=== PATIENT | male | born 1950 | race Caucasian/White ===

== ENCOUNTER 2018-12-20 09:10 | Observation (INO) ==
--- NOTE | 2018-12-20 09:47 | Diag Imaging Result Doc PS360 ---
EXAM: CHEST-2 VIEWS HISTORY: dizziness TECHNIQUE: Two views COMPARISON: 06/29/2018 FINDINGS: The lungs are well expanded. The heart is not enlarged. The there are sternal wires. Vessels are not distended. There are no infiltrates. No pleural effusions. IMPRESSION: No acute abnormality. Electronically signed by Anthony Ansari 12/20/2018 9:44 AM
[2018-12-20 10:06] LABS: BASO# 0.04 X1000 (0.0-0.2); BASO% 0.3 % (0.0-0.8); EOS# 0.06 X1000 (0.0-0.7); EOS% 0.4 % (0.0-10.0); HEMATOCRIT 49.3 % (42.0-52.0); HEMOGLOBIN 16.4 g/dL (14.0-18.0); IMM GRAN# 0.04 X1000 (0.0-0.04); IMM GRAN% 0.3 % (0.0-0.5); LYMPH# 1.35 X1000 (1.2-3.4); LYMPH% 9.4 % (20.5-51.1); MCH 30.4 PG (27-31); MCHC 33.3 g/dL (33-37); MCV 91.3 FL (81-99); MONO# 0.67 X1000 (0.11-0.59); MONO% 4.6 % (1.7-9.3); MPV 10.3 FL (7.4-10.4); NEUT# 12.25 X1000 (1.4-6.5); PLT 333 X1000 (130-400); RDW 12.3 % (11.5-14.5); WBC 14.41 X1000 (4.8-10.8)
[2018-12-20 10:09] LABS: INR 0.99; PROTIME 13.2 Seconds (11.0-16.0)
[2018-12-20 10:13] LABS: PTT 24.4 Seconds (22.3-41.8)
[2018-12-20 10:45] LABS: ALB/GLOB RATIO 1.5; ALBUMIN 4.5 g/dL (3.5-5.0); CREATININE 1.6 mg/dL (0.7-1.2); POTASSIUM 4.3 mmol/L (3.5-5.1); TOTAL BILIRUBIN 0.36 mg/dL (0.20-1.00); TOTAL PROTEIN 7.5 g/dL (6.3-8.3)
--- NOTE | 2018-12-20 10:57 | EKG Report ---
Test Performed on : 12/20/2018 10:16:30 AM Test Reason : dizziness Blood Pressure : / mmHG Vent. Rate : 063 BPM Atrial Rate : 063 BPM P-R Int : 230 ms QRS Dur : 104 ms QT Int : 410 ms P-R-T Axes : 017 -03 114 degrees QTc Int : 419 ms Sinus rhythm. with 1st degree AV block. Inferior infarct , age undetermined T wave abnormality, consider lateral ischemia Abnormal ECG When compared with ECG of 04-MAR-2018 13:17, Inferior infarct is now present Unconfirmed Result
[2018-12-20 11:34] LABS: BE -2.2 mmoll (-2.0-2.0); BLOOD TYPE VENOUS; HCO3-(ACT) 21.6 mmoll (22-27); PCO2(98.6) 49 mmHg (40-60); PO2(98.6) 26 mmHg (30-55); SAMPLE BLOOD; SAO2 48.6 % (40.0-85.0); pH(98.6) 7.31 (7.32-7.43)
[2018-12-20 11:43] LABS: URINE SOURCE CLEAN CATCH
[2018-12-20] MEDS ORDERED: NS 1,000 ML IV ONE (11:48)
[2018-12-20] MEDS ORDERED: HUMULIN R SUBQ ONE (11:48)
[2018-12-20] MEDS ORDERED: ROCEPHIN 1 GM in NS 50 ML IV ONE (11:52)
[2018-12-20 12:00] LABS: BILIRUBIN URINE NEGATIVE (NEGATIVE); BLOOD URINE NEGATIVE (NEGATIVE); COLOR YELLOW; GLUCOSE URINE >1000 mg/dL (NEGATIVE); KETONE URINE NEGATIVE (NEGATIVE); LEUKOCYTES URINE TRACE (NEGATIVE); NITRITE URINE NEGATIVE (NEGATIVE); PH URINE 5.5; PROTEIN URINE 30 mg/dL (NEGATIVE); SP GRAVITY URINE 1.033; TURBIDITY URINE CLEAR (CLEAR); UROBILINOGEN URINE NORMAL (NORMAL)
[2018-12-20 12:42] LABS: UR EPITHELIAL CELLS <10 /HPF (<10); URINE BACTERIA NEGATIVE /HPF; URINE RBC <10 /HPF (<10)
[2018-12-20 13:07] LABS: URINE YEAST PRESENT
--- NOTE | 2018-12-20 14:44 | Diag Imaging Result Doc PS360 ---
EXAM: CT ANGIOGRM PULMONARY ARTERIES 12/20/2018 HISTORY: elevated d-dimer TECHNIQUE: This exam was performed using automated exposure control, adjustment of mA or kV according to patient size, and/or use of iterative reconstruction technique. COMMENT: 3-D MIPS were performed. There are multiple filling defects present in both lower lobes and both upper lobes with a embolus bridging the interlobar pulmonary artery on the right. Between the lower lobe and the middle lobe vessels. There are no previous studies. There is extensive coronary calcification. There has been previous sternotomy. There is no evidence of acute pulmonary parenchymal disease. There are no abnormal fluid collections. There is no evidence of significant adenopathy. There is an exophytic lesion arising posteriorly from the mid right renal cortex with a CT density of over 45 Hounsfield units and this may represent a hyperdense cyst. The lesion measures 1.9 cm in diameter. There are no previous studies. The regional skeleton is intact. IMPRESSION: Extensive pulmonary emboli. The findings were discussed with Kulwant Allen MD at 12/20/2018 2:42 PM. Electronically signed by Nasim Calix 12/20/2018 2:42 PM
[2018-12-20] MEDS ORDERED: LOVENOX 1 MG/KG SUBQ ONE (15:00)
[2018-12-20] MEDS ORDERED: LOVENOX SUBQ ONE (15:30)
[2018-12-20] MEDS ORDERED: ZOFRAN IV PRN (15:41)
[2018-12-20] MEDS ORDERED: TYLENOL PO PRN (15:41)
[2018-12-20] MEDS ORDERED: HUMALOG SUBQ SCH (16:00)
[2018-12-20 16:25] LABS: HEMOGLOBIN A1C 9.1 % (4.8-6.0)
[2018-12-20] MEDS: NS 1,000 ML IV SCH (16:38)
--- NOTE | 2018-12-20 18:56 | HISTORY AND PHYSICAL ---
PRIMARY CARE PHYSICIAN: Dr. Rene Rashid. CHIEF COMPLAINT: Dizziness and diaphoresis 1 hour prior to arrival. HISTORY OF PRESENTING ILLNESS: This is a 68-year-old male who presents to [facility] with complaints of diaphoresis and dizziness that began 1 hour prior to arrival feeling like he was going to pass out. When he arrived he was noted to have a white blood cell count of 14.41. His D-dimer was 1.35. We did a pulmonary arteriogram that showed an impression of extensive pulmonary emboli present in both lower lobes and both upper lobes with an embolus bridging the interlobar pulmonary artery on the right. His blood sugar was noted to be 383. His creatinine was 1.6. His anion gap was 19. Urinalysis was negative. So, he will be admitted for further evaluation and treatment. PAST MEDICAL HISTORY: Diabetes type 2, hypertension and [place]. PAST SURGICAL HISTORY: CABG. FAMILY HISTORY: Reviewed and noncontributory. SOCIAL HISTORY: He currently lives alone. Denies any tobacco, alcohol or illicit drug use. Allergies: He has no known drug allergies. HOME MEDICATIONS: We will hold his metformin 1000 mg p.o. b.i.d., aspirin 325 mg p.o. daily, Tricor 145 mg p.o. daily, NovoLog FlexPen 10 units subcu t.i.d., Levemir 50 units subcutaneous b.i.d., Prinivil 20 mg p.o. daily, Lopressor 25 mg p.o. daily, omega-3 1000 mg p.o. daily, Ranexa 500 mg p.o. b.i.d., and Crestor 40 mg p.o. daily. LABORATORY DATA: Showed a white blood cell count of 14.41, hemoglobin 16.4, hematocrit 49.3, and platelets 333,000 PT and INR of 13.2 and 0.99 with a D-dimer of 1.35. A venous blood gas showed a pH of 7.31, pCO2 49, PO2 26, bicarb 21.6, lactate 4.50. Sodium 137, potassium 4.3, chloride 96, CO2 22, BUN of 22, creatinine 1.6, glucose 383, magnesium of 2. Cardiac enzymes were negative, proBNP of 226, free T4 of 1.18. Urinalysis was negative except for urine yeast- like cells present. Pulmonary arteriogram showed extensive pulmonary emboli present in both lower lobes and both upper lobes with an embolus bridging the interlobar pulmonary artery on the right. Chest x-ray showed no acute abnormality. EKG showed sinus rhythm with a first-degree AV block at 63. REVIEW OF SYSTEMS: He denied any fever, chills, blurred vision. He had dizziness, diaphoresis. Denied any chest pain, coughing, shortness of breath denied any abdominal pain, constipation, diarrhea, burning or hurting with urination. PHYSICAL EXAMINATION: On arrival he had a temperature of 97.3 degrees, pulse 72, respirations 18, blood pressure 121/78 saturating 96% on room air. GENERAL: This is a 68-year-old male who is lying in the bed and answers questions appropriately. HEENT: Normocephalic, atraumatic. Normal ENT inspection. Oropharynx and nares are clear. EYES: Pupils are equal, round, reactive to light and accommodation. Extraocular movements are intact. NECK: Normal inspection. Normal range of motion. LUNGS: Clear to auscultation bilaterally with equal lung expansion and chest wall movement. HEART: With regular rate and rhythm. No murmurs, rubs, or gallops. ABDOMEN: Soft, nontender, nondistended. Bowel sounds are present x4 quadrants. MUSCULOSKELETAL: He had 5/5 strength x4 extremities. NEUROLOGICAL: The cranial nerves 2-12 appear grossly intact. ASSESSMENT: 1. Bilateral upper and lower pulmonary emboli. 2. Elevated D-dimer secondary to #1. 3. Leukocytosis. 4. Acute kidney injury. 5. Diabetes type 2, uncontrolled with hyperglycemia. OUR PLAN: He will be admitted to the medical unit, placed on telemetry diabetic diet, pattern blood sugars with high sliding scale. Lovenox 1 mg/kg subcutaneously q.12, normal saline at 75 mL an hour. Continue home medications as previously identified. We will do a hypercoagulable workup. Urine culture is pending. We will check a hemoglobin A1c and blood cultures x2 are pending. Further orders after seen by attending. Dictated by FRANKIE Sosa for Devyn Hernandez MD cc: FRANKIE Sosa MD Agree with the above, the following is my own face to face assessment. lung exam surprisingly clear given extent of bilateral pulmonary emboli. giving therapeutic lovenox and will likely transition to eliquis in the morning if patient remains stable. told patient that especially with a previous history of another unprovoked clot, he is likely stuck with anticoagulation indefinitely. MTDD
[2018-12-20] MEDS: HUMALOG SUBQ SCH ×2 (19:31→20:46)
[2018-12-20] MEDS: RANEXA PO SCH (20:45)
[2018-12-20] MEDS: LEVEMIR SUBQ SCH (20:46)
[2018-12-21] MEDS: LOVENOX SUBQ SCH ×2 (04:09→18:51)
[2018-12-21] MEDS: NS 1,000 ML IV SCH (04:10)
[2018-12-21] MEDS: HUMALOG SUBQ SCH ×7 (06:07→22:16)
[2018-12-21] MEDS ORDERED: INSULIN PEN NEEDLES ONE (06:22)
[2018-12-21 06:58] LABS: BASO# 0.05 X1000 (0.0-0.2); BASO% 0.6 % (0.0-0.8); EOS# 0.17 X1000 (0.0-0.7); EOS% 2.1 % (0.0-10.0); HEMATOCRIT 45.8 % (42.0-52.0); HEMOGLOBIN 15.4 g/dL (14.0-18.0); IMM GRAN# 0.02 X1000 (0.0-0.04); IMM GRAN% 0.2 % (0.0-0.5); LYMPH# 2.48 X1000 (1.2-3.4); LYMPH% 30.1 % (20.5-51.1); MCH 30.6 PG (27-31); MCHC 33.6 g/dL (33-37); MCV 90.9 FL (81-99); MONO# 0.53 X1000 (0.11-0.59); MONO% 6.4 % (1.7-9.3); MPV 10.1 FL (7.4-10.4); NEUT# 4.99 X1000 (1.4-6.5); NEUT% 60.6 % (42.2-75.2); PLT 317 X1000 (130-400); RBC 5.04 XMIL (4.7-6.1); RDW 12.3 % (11.5-14.5); WBC 8.24 X1000 (4.8-10.8)
[2018-12-21 07:33] LABS: AGAP 13; BUN 14 mg/dL (8-22); CALCIUM 9.3 mg/dL (8.8-10.2); CHLORIDE 97 mmol/L (98-107); COSMO 275; ESTIMATED GFR > 60; GLUCOSE 254 mg/dL (70-104); POTASSIUM 3.9 mmol/L (3.5-5.1); SODIUM 133 mmol/L (136-145); TCO2 23 mmol/L (25-35)
[2018-12-21] MEDS: TRICOR PO SCH (09:38)
[2018-12-21] MEDS: RANEXA PO SCH ×2 (09:38→22:06)
[2018-12-21] MEDS: PRINIVIL PO SCH (09:38)
[2018-12-21] MEDS: FISH OIL CONCENTRATE PO SCH (09:38)
[2018-12-21] MEDS: ASPIRIN PO SCH (09:38)
[2018-12-21] MEDS: CRESTOR PO SCH (09:38)
[2018-12-21] MEDS: LOPRESSOR PO SCH (09:38)
[2018-12-21] MEDS: LEVEMIR SUBQ SCH ×2 (09:39→22:06)
--- NOTE | 2018-12-21 16:35 | PROGRESS NOTE ---
DATE: 12/21/2018 SUBJECTIVE: The patient has no major complaints. He wants to go home. No chest pain. No shortness of breath. OBJECTIVE: Blood pressure is 119/76, heart rate of 60, respiratory rate 18, temperature 98.3 degrees.Cardiovascular: Regular rate and rhythm. Pulmonary: Bilateral breath sounds, clear to auscultation. GI: Soft, nontender, nondistended. Bowel sounds are positive. LABORATORY DATA: White count 8, hemoglobin and hematocrit 15, 45, platelets 317,000. Glucose is up a bit. PROBLEMS: Pulmonary embolism. We will continue treatment anticoagulation, work on switching him to Eliquis once we know he can afford it. He appears to be stable. We do need to rule out DVT, check cardiac function but I think he is probably ready to go home soon. His hypercoagulable workup is in place but he reports an upper extremity blood clot in the past which will make those 2 deep vein thrombosis, pulmonary embolism episodes and recommendations for long-term anticoagulation so we will see how he does. cc: Miguel Root MD
[2018-12-22] MEDS: LOVENOX SUBQ SCH (05:39)
[2018-12-22] MEDS: HUMALOG SUBQ SCH ×4 (06:38→12:55)
[2018-12-22 07:24] LABS: HEMATOCRIT 43.6 % (42.0-52.0); HEMOGLOBIN 14.8 g/dL (14.0-18.0); MCH 31.2 PG (27-31); MCHC 33.9 g/dL (33-37); MCV 91.8 FL (81-99); MPV 10.1 FL (7.4-10.4); RBC 4.75 XMIL (4.7-6.1); RDW 12.6 % (11.5-14.5); WBC 7.53 X1000 (4.8-10.8)
[2018-12-22] MEDS: LEVEMIR SUBQ SCH (08:49)
[2018-12-22] MEDS: TRICOR PO SCH (08:51)
[2018-12-22] MEDS: ASPIRIN PO SCH (08:51)
[2018-12-22] MEDS: PRINIVIL PO SCH (08:51)
[2018-12-22] MEDS: CRESTOR PO SCH (08:51)
[2018-12-22] MEDS: LOPRESSOR PO SCH (08:51)
[2018-12-22] MEDS: FISH OIL CONCENTRATE PO SCH (08:51)
[2018-12-22] MEDS: RANEXA PO SCH (08:51)
[2018-12-22 08:54] VITALS: BP 155/84
--- NOTE | 2018-12-22 09:24 | ECHO REPORT ---
ORDER DATE: 12/21/2018 MEASUREMENTS: Septal thickness 1.0, left ventricular internal diameter diastole 5.4, posterior wall thickness 1.0, left ventricular internal diameter in systole 3.7, left atrium 4.0, aortic root 4.0. SUMMARY: 1. Fair quality study. 2. Aortic valve is trileaflet and opens normally on 2-dimensional images. The peak gradient across aortic valve is less than 10 mmHg. Mitral, tricuspid, and pulmonic valves are without evidence of structural abnormality. There is mild mitral regurgitation, mild tricuspid regurgitation, and trace pulmonic insufficiency. The estimated systolic PA pressure by Doppler is 30 to 35 mmHg. The aortic root is mildly enlarged. 3. Normal left ventricular dimensions demonstrated. Estimated left ventricular ejection fraction approximately 55%. No regional wall motion abnormalities are evident. Left atrium is upper normal in size. Right atrium and right ventricle normal size with grossly preserved right ventricular systolic function. 4. No pericardial effusion. 5. Appearance of inferior vena cava suggests normal central venous pressure. cc: MD Miguel Earl MD
--- NOTE | 2018-12-22 12:04 | PROVIDER DOCUMENTATION ---
This chart was entered by Eliza Nichols Scribe, acting as scribe for Deion Mccartney MD. HPI-Syncope/Dizziness - General Chief Complaint: Dizziness Stated Complaint: DIZZINESS,DIBETIC,NEAR SYNCOPE Time Seen by Provider: 12/20/18 10:28 Source: patient Allergies/Adverse Reactions: Patient Allergies Allergy/AdvReac Type Severity Reaction Status Date / Time No Known Allergies Allergy Verified 12/20/18 11:12 Home Medications: Home Medication List Medication Instructions Recorded Confirmed Last Taken Type Aspirin 325 mg PO DAILY 03/04/18 12/20/18 05/03/18 History Fenofibrate [Tricor] 145 mg PO DAILY 03/04/18 12/20/18 05/10/18 21:00 History Insulin Aspart [Novolog Flexpen] 10 unit SQ TID 03/04/18 12/20/18 05/10/18 21:00 History Insulin Detemir [Levemir Flextouch] 50 unit SQ BID 03/04/18 12/20/18 05/10/18 21:00 History LISINOpril [Prinivil] 20 mg PO DAILY 03/04/18 12/20/18 05/10/18 21:00 History Metformin HCl 1,000 mg PO BID 03/04/18 12/20/18 05/10/18 21:00 History Metoprolol [Lopressor] 25 mg PO DAILY 03/04/18 12/20/18 05/11/18 06:30 History [place]-3 Fatty Acids/Fish Oil 1 each PO DAILY 03/04/18 12/20/18 05/10/18 21:00 History [[place]-3 1,000 mg Softgel] ROSUVAstatin [Crestor] 40 mg PO DAILY 03/04/18 12/20/18 05/10/18 21:00 History Ranolazine E.r. 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 pt denies cp, sob and fever. pt had cabg 20 yrs ago in [place]. pt has hx of DM and HTN. pt took 20 units of Levemir and 30 units Novalog due to fsbs of 343 this am. pt followed by Dr. Moody. pt is a nonsmoker. Onset/Duration: reports: 1 hour ago Timing: reports: improving Symptoms prior to episode: reports: none Context: reports: almost passed out Loss of Consciousness: no loss of consciousness Location of injury. (If syncope resulted in an injury.): reports: none Current Symptoms: reports: none/feels normal - Dizziness Dizziness Related Current/Associated Symptoms: reports: none/feels normal Any recent trauma/injury?: reports: none Modifying Factors: improves with: nothing Patient usually:: reports: walks without assistance Review of Systems - Adult - REVIEW OF SYSTEMS - ADULT Constitutional: reports: no symptoms reported. denies: chills, fever, fatique Eyes: reports: no symptoms reported Ears, Nose, Mouth & Throat: reports: no symptoms reported Cardiovascular: reports: no symptoms reported. denies: chest pain, orthopnea, palpitations Respiratory: reports: no symptoms reported. denies: dyspnea on exertion, shortness of breath, wheezing Gastrointestinal: reports: no symptoms reported Genitourinary: reports: no symptoms reported Musculoskeletal: reports: no symptoms reported Integumentary: reports: no symptoms reported Neurological: reports: see HPI, dizziness/vertigo, syncope (near). denies: loss of balance, numbness, paresthesia Psychiatric: reports: no symptoms reported Endocrine: reports: see HPI, excessive sweating. denies: goiter, cold intolerance, heat intolerance Hematologic/Lymphatic: reports: no symptoms reported Allergic/Immunologic: reports: no symptoms reported All Other Systems: Reviewed and Negative Past History - Adult - PAST MEDICAL HISTORY-ADULT Review of Records: reports: Nursing Assessment Review, Medications Reviewed, Social history reviewed & non-contributory. Major Childhood Illnesses: reports: denies history Cardiovascular: reports: HTN Respiratory: reports: denies history Gastrointestinal: reports: denies history Obstetrical/Gynecological: reports: denies history Genitourinary: reports: denies history Musculoskeletal: reports: denies history Neurological: reports: denies history Endocrine/Immune: reports: Diabetes Other Conditions: reports: denies history - PRIOR SURGERIES/PROCEDURES Surgical/Procedure History: reports: CABG - IMMUNIZATION STATUS Childhood Immunizations: See Nurse Assessment Flu Vaccine: See Nurse Assessment - FAMILY HISTORY Family History: reviewed, not pertinent - SOCIAL HISTORY Smoking: non-smoker Substance Use: none/never Physical Exam-General - PHYSICAL EXAM-ADULT Initial Vital Signs Reviewed: Yes - CONSTITUTIONAL General Appearance: appears well, alert, no apparent distress - EYES Eyes: PERRL/EOMI, pink conjunctivae - HEAD, EARS, NOSE, MOUTH & THROAT HENMT: normocephalic/atraumatic, moist mucous membranes, normal ENT inspection - NECK Neck: non-tender, full range of motion, supple, normal inspection - RESPIRATORY Respiratory: chest non-tender, lungs clear, normal breath sounds - CARDIOVASCULAR Cardiovascular: normal peripheral pulses, regular rate, rhythm - GASTROINTESTINAL (ABDOMEN) Abdominal Exam: normal bowel sounds, non tender, soft - LYMPHATIC Lymphatic: no adenopathy - MUSCULOSKELETAL Back Exam: normal inspection, no CVA tenderness, no vertebral tenderness Extremity: normal range of motion, non-tender, normal inspection, no calf tenderness, normal capillary refill, pelvis stable, other (trace edema bilat ankles). negative: abnormal NV exam, calf tenderness, pulse deficit Peripheral Pulses: radial (R): 2+, radial (L): 2+ - SKIN Integumentary: normal color, normal turgor, warm/dry. negative: diaphoresis, ec chymosis, swelling - NEUROLOGIC Neurologic: director translation II-XII nml as tested, grossly normal, no motor/sensory deficits - PSYCHIATRIC Psych/Mental Status: normal mood/affect, normal thought content, normal thought process, oriented x 3 Progress - PLAN OF CARE/RESULTS Progress/Plan/Lab Results: 12/20/18 13:35 Urine Culture - Final Urine,Clean Catch MIXED EVERARDO Orders Category Date Time Status Admit - [facility] Routine AdmDCTranf 12/20/18 15:41 Active Activity - Up with Assistance ORDERED Care 12/20/18 15:41 Active Cardiac Monitoring DIRECTED Care 12/20/18 09:20 Completed Cardiac Monitoring DIRECTED Care 12/20/18 10:38 Completed FSBS [Finger Stick Blood Sugar (ED)] DIRECTED Care 12/20/18 14:01 Completed FSBS/Accucheck Result AC + HS Care 12/20/18 15:41 Active Intake and Output-Strict ORDERED Care 12/20/18 15:41 Active Saline Loc NOW Care 12/20/18 10:38 Active Vital Signs Order Q 4-HR ASSESS Care 12/20/18 15:41 Active Z-Document. for Tele Applied ORDERED Care 12/20/18 15:41 Completed Diabetic Diet Diet 12/20/18 15:41 Active CHEST-2 VIEWS [RAD] Stat Exams 12/20/18 09:20 Completed CTA [CT ANGIOGRM PULMONARY ARTERIES] [CT] Stat Exams 12/20/18 13:21 Completed A1C HGB W EST AVG GLUCOSE [CHEM] Stat Lab 12/20/18 09:33 Completed BASIC METABOLIC PANEL [CHEM] Routine Lab 12/21/18 06:40 Completed BLOOD CULTURE [BLDCUL] Stat Lab 12/20/18 11:15 Results CBC WITH DIFF [HEME] Routine Lab 12/21/18 06:40 Completed CBC WITH ELECTRONIC DIFF [HEME] Stat Lab 12/20/18 09:33 Completed CK PROFILE [SP CHEM] Stat Lab 12/20/18 09:33 Completed COMPREHENSIVE METABOLIC PANEL [CHEM] Stat Lab 12/20/18 09:33 Completed D-DIMER [COAG] Stat Lab 12/20/18 09:33 Completed FREE T4 Stat Lab 12/20/18 09:33 Completed MAGNESIUM [CHEM] Stat Lab 12/20/18 09:33 Completed PRO B-NATRIURETIC PEPTIDE Stat Lab 12/20/18 09:33 Completed PROTIME WITH INR [COAG] Stat Lab 12/20/18 09:33 Completed PTT [COAG] Stat Lab 12/20/18 09:33 Completed TROPONIN T Stat Lab 12/20/18 09:33 Completed URINALYSIS W/POSS RFLX CULT [URINALYSIS] Stat Lab 12/20/18 11:39 Completed URINE CULTURE [RM] Routine Lab 12/20/18 13:35 Completed URINE MANUAL MICROSCOPIC [URINALYSIS] Stat Lab 12/20/18 11:39 Completed VENOUS BLOOD GAS [RESP] Routine Lab 12/20/18 11:15 Completed 0.9% Sodium Chloride Inj [Ns] 1,000 ml Med 12/20/18 15:41 Discontinued IV 75 mls/hr 0.9% Sodium Chloride Inj [Ns] 1,000 ml Med 12/20/18 11:48 Discontinued IV 999 mls/hr Acetaminophen [Tylenol] Med 12/20/18 15:41 Active 650 mg PO Q6H PRN PRN Aspirin Med 12/21/18 09:00 Active 325 mg PO DAILY CefTRIAXONE [Rocephin] 1 gm Med 12/20/18 11:52 Discontinued 0.9% Sodium Chloride Inj [Ns] 50 ml IV NOW Enoxaparin 1 mg/kg [Lovenox 1 mg/kg] Med 12/20/18 15:00 Discontinued 1 each SUBQ NOW ONE Enoxaparin [Lovenox] Med 12/20/18 15:30 Discontinued 110 mg SUBQ NOW ONE Enoxaparin [Lovenox] Med 12/21/18 05:00 Active 110 mg SUBQ Q12H Fenofibrate [Tricor] Med 12/21/18 09:00 Active 145 mg PO DAILY Insulin Detemir [Levemir] Med 12/20/18 21:00 Active 50 unit SUBQ BID Insulin Human Regular [Humulin R] Med 12/20/18 11:48 Discontinued 10 unit SUBQ NOW ONE Insulin Lispro [Humalog] Med 12/20/18 17:00 Active 10 units SUBQ TID CC Insulin Lispro [Humalog] Med 12/20/18 16:00 Discontinued See Protocol SUBQ 0700,1100,1600,2100 LISINOpril [Prinivil] Med 12/21/18 09:00 Active 20 mg PO DAILY Metoprolol [Lopressor] Med 12/21/18 09:00 Active 25 mg PO DAILY [place]-3 Fatty Acids [Fish Oil Concentrate] Med 12/21/18 09:00 Active 1,000 mg PO DAILY Ondansetron [Zofran] Med 12/20/18 15:41 Active 4 mg IV Q4H PRN PRN ROSUVAstatin [Crestor] Med 12/21/18 09:00 Active 40 mg PO DAILY Ranolazine E.r. [Ranexa] Med 12/20/18 21:00 Active 500 mg PO BID Telemetry [OM.EQ] Routine Oth 12/20/18 15:41 Active EKG [EKG] Stat Ther 12/20/18 09:20 Draft Transfer/Admit Order [TRANSFER] Routine Transfer 12/20/18 15:10 Completed Result Diagrams: 12/22/18 06:50 12/21/18 06:40 - EKG 1 Time of EKG reading by physician:: 10:23 EKG Read and Signed by:: Deion Mccartney (inferior infarct, age undetermined ) EKG Interpretation (*Must complete 3 of following elements*): Abnormal Rate: 63 (no stemi ) Rhythm: SR w/1st degree AV block Rowe: normal QRS: normal IN Interval: prolonged ST Wave: non-specific ST changes (T wave abnormality, consider anterior and lateral ischemia) - XRAY 1 XRAY Study: Chest Impression: Normal, See EMR Report ( EXAM: CHEST-2 VIEWS HISTORY: dizziness TECHNIQUE: Two views COMPARISON: 06/29/2018 FINDINGS: The lungs are well expanded. The heart is not enlarged. The there are sternal wires. Vessels are not distended. There are no infiltrates. No pleural effusions. IMPRESSION: No acute abnormality. Electronically signed by Anthony Ansari 12/20/2018 9:44 AM) - CONSULTS/PCP/HOSPITALIST Notification #1 *Consult/PCP/Hospitalist*: LIV ACCEPTS TO DR GEORGE Time Discussed: 14:53 Consult Disposition: Admit Departure - Departure Date of Disposition Decision: 12/20/18 Time of Disposition Decision: 14:53 DIAGNOSIS: Hyperglycemia, Lactic acidosis, UTI (urinary tract infection) Pulmonary embolus Qualifiers: Pulmonary embolism type: multiple subsegmental (without acute cor pulmonale) Qualified Code(s): I26.94 - Multiple subsegmental pulmonary emboli without acute cor pulmonale Disposition: ADMITTED INPATIENT 09 Certified Medical Emergency: Emergent Condition: Fair - Critical Care Note This patient required my direct & personal management of CC.: No Attestation - Physician/ RAQUEL Attestation Patient care was provided by Advanced Practice Provider:: No The physician spent face to face time with patient:: Yes Advanced Practice Provider documentation review:: Supervising physician onsite and consulted in the evaluation and care of this patient. The physician did have a face to face encounter with the patient. This chart was documented by the indicated scribe, (Eliza Nichols Scribe) and accurately reflects the services I performed and decisions made by me, Deion Mccartney MD, as attested by the provider's signature.
--- NOTE | 2018-12-22 17:16 | DISCHARGE SUMMARY ---
ADMISSION DATE: 12/20/2018 DISCHARGE DATE: 12/22/2018 DISCHARGE DIAGNOSES: 1. Pulmonary emboli. 2. Deep vein thrombosis. This is a 68-year-old male who came in (admit date 12/20/2018 and discharge date 12/22/2018) and was admitted for a PE. He came in with shortness of breath and some dizziness. He apparently had an episode like this previously. His initial creatinine was 1.1. CTA though showed upper and lower pulmonary emboli but not in the major vessels. He was not particularly hypoxic or in any distress. In fact, the following day he really just wanted to go home. I encouraged him to stay to complete the workup. Protein C and S activity were normal and antithrombin 3 as well. Homocystine level was also normal. Antiphospholipid antibodies were negative which is not surprising. So, still pending is Factor V Leiden, lupus, and prothrombin gene mutation. The following day he was breathing comfortably. His ultrasound did show, I believe, a popliteal or gastrocnemius below the knee DVT in the right leg but he was not particularly symptomatic. His echo was unremarkable. He was very motivated to go home, however, I encouraged him that he will need some time off, at least the next couple of weeks until he can get a better sense of his exercise tolerance. He will be discharged on Eliquis at a high dose loading for a week and then back down to normal. I would treat for at least 6 months but this is his second clot. He had an upper extremity thrombus, I am not sure if it was a true DVT versus a thrombophlebitis, however, may have to consider long-term anticoagulation especially since this is his second event even if his thrombophilia hypercoagulability workup is negative but that will be at the discretion of Dr. Rashid. DISCHARGE MEDICATIONS: 1. Aspirin 325 mg a day. 2. Crestor 40 mg daily. 3. Levemir 50 mg b.i.d. 4. Lopressor 25 mg daily. 5. Metformin 1 g b.i.d. 6. NovoLog 10 mg t.i.d. 7. [place] daily. 8. Prinivil 20 mg daily. 9. Ranexa 500 mg b.i.d. 10.Tricor 145 mg daily. 11.Eliquis 10 mg b.i.d. for 7 days and then 5 b.i.d. FOLLOW UP: Follow up with Dr. Rashid in 1 to 2 weeks. Return for worsening shortness of breath or cough. DISCHARGE TIME: 32 minutes. cc: Miguel Root MD
--- NOTE | 2018-12-23 13:45 | Extremity Venous Study ---
PROCEDURE NAME: Venous U/S Bilateral Legs - 12/21/2018 REQUESTING PROVIDER: Dr. Root. PAPER HANGER: Felicia. INDICATIONS: Swelling. EQUIPMENT: [email or web address] Vivid E9 ultrasound system with a 9 L-D transducer. FINDINGS: Images of the bilateral lower extremity venous systems were obtained in both sagittal and transverse planes. Doppler was used to evaluate veins for spontaneity, phasicity, respiratory excursion, and digital augmentation. RESULTS: DVT noted in the right gastrocnemius vein behind the knee. There was also mild reflux noted in the left popliteal vein. INTERPRETATION: Deep venous thrombosis noted in the right gastrocnemius vein behind the right knee and reflux in the left popliteal vein. cc: MD Miguel Green MD MTDD
== END 2018-12-22 13:51 | disposition home or self-care (01) ==
LOC: ED 09:10 → INTOOBSV 15:29 → 3N 15:29 → SUATTDRO 15:29 → 3N 15:31
PROVIDERS: ATTEND Internal Medicine